=== PATIENT | female | born 1995 | race Caucasian/White ===

== ENCOUNTER 2021-11-25 17:39 | Emergency (ER) | payer OTHER ==
[~2021-11-25 17:39] MED LIST: BENTYL10 MG PO; MOBIC15 MG PO; ZOFRAN8 MG PO
[2021-11-25 18:25] LABS: BILIRUBIN NEGATIVE (NEGATIVE); BLOOD NEGATIVE Ery/uL (NEGATIVE); CLARITY CLEAR (CLEAR); COLOR YELLOW (YELLOW); GLUCOSE (U) NORMAL (NORMAL); LEUKOCYTES NEGATIVE Leu/uL (NEGATIVE); NITRITE NEGATIVE (NEGATIVE); PROTEIN NEGATIVE (NEGATIVE); SPECIFIC GRAVITY 1.025 (1.001-1.030); UROBILINOGEN 0.2 mg/dL (0.2-1.0)
[2021-11-25 18:40] LABS: BASOPHIL 0.3 % (0-2); EOSINOPHIL 1.9 % (0-5); HCT 39.3 % (37.0-47.0); HGB 13.1 g/dl (12.5-16.0); MCH 29.8 pg (25.0-31.0); MCHC 33.3 g/dL (32.0-36.0); MCV 89.5 fL (78.0-100.0); MONOCYTE 7.9 % (0-12); MPV 10.7 fL (6.0-9.5); NEUTROPHIL 56.8 % (41-80); NRBC 0; PLT 212 K/uL (150-400); RBC 4.39 M/uL (4.20-5.40); RDW 12.2 % (11.5-14.0); WBC 6.8 K/uL (4.0-10.5)
[2021-11-25 19:01] LABS: BUN/CREAT RATIO (CALC) 13.6 RATIO; CREATININE 1.03 mg/dL (0.51-0.95); POTASSIUM 3.8 mmol/L (3.5-5.1)
[2021-11-25] MEDS ORDERED: NAPROXEN500 MG PO (21:25)
[2021-11-25] MEDS ORDERED: BACLOFEN 10MG T10 MG PO (21:25)
== END 2021-11-25 21:38 | disposition home or self-care (01) ==
LOC: FER 17:39
PROVIDERS: Nurse Practitioner Family
DX: S66.912A Strain of unspecified muscle, fascia and tendon at wrist and hand level, left hand, initial encounter (principal); S00.81XA Abrasion of other part of head, initial encounter; N83.201 Unspecified ovarian cyst, right side; M79.641 Pain in right hand; R07.9 Chest pain, unspecified; R10.13 Epigastric pain; Z28.310 Unvaccinated for COVID-19; V49.40XA Driver injured in collision with unspecified motor vehicles in traffic accident, initial encounter
CPT/HCPCS: 36415; 71260; 73110; 73130; 80048; 81003; 85025; J1100; J1885; J7030; Q9967